=== PATIENT | male | born 1965 | race Caucasian/White ===

== ENCOUNTER 2018-12-23 13:13 | Emergency (ER) | payer OTHER ==
[~2018-12-23] VITALS: Ht 172.7 cm; Wt 73.0 kg
[2018-12-23 13:16] VITALS: BP 121/70; PULSE 72; RESP 18; Ht 172.7 cm; Wt 73.0 kg
[2018-12-23] MEDS ORDERED: TRAM50TA2 PO (13:33)
[2018-12-23] MEDS ORDERED: IBUP-1542 PO (13:33)
--- NOTE | 2018-12-23 13:39 | ERD ---
ER Documentation Chief Complaint Chief Complaint RT FOOT PAIN X FEW MONTHS HPI 53-year-old male presents with right foot pain for last few months. He had an x-ray which was normal 1 month ago. He is prescribed antibiotics for uncertain reason without relief. Denies any history of trauma. He does walk a lot. Den ies any deficits, restricted range of motion, additional symptoms. Patient gives a history of seizures due to history of head injuries. No recent seizures. ROS All systems reviewed and are negative except as per history of present illness. Medications Home Meds Active Scripts Tramadol HCl (Tramadol HCl) 50 Mg Tablet, 50 MG PO Q4 PRN for PAIN, #15 TAB Prov:JESSICA GARCIA MD 12/23/18 Ibuprofen* (Motrin*) 600 Mg Tab, 600 MG PO Q6, #30 TAB Prov:JESSICA GARCIA MD 12/23/18 PMhx/Soc Hx Neurological Disorder: Yes (Seizures) Smoking Status: Unknown if ever smoked FmHx Family History: No diabetes, No coronary disease, No other Physical Exam Vitals Vital Signs Date Temp Pulse Resp B/P (MAP) Pulse Ox O2 O2 Flow FiO2 Time Delivery Rate 12/23/18 97.3 72 18 121/70 97 13:16 (87) Physical Exam Const: No acute distress Head: Atraumatic Eyes: Normal Conjunctiva ENT: Normal External Ears, Nose and Mouth. Neck: Full range of motion. No meningismus. Resp: Clear to auscultation bilaterally Cardio: Regular rate and rhythm, no murmurs Abd: Soft, non tender, non distended. Normal bowel sounds Skin: No petechiae or rashes Back: No midline or flank tenderness Ext: No cyanosis, or edema. Tenderness across the metatarsals. Minimal possible swelling without erythema, warmth, deformities, deficits. Right lower extremity is neurovascular intact. Neur: Awake and alert Psych: Normal Mood and Affect Results 24 hrs Current Medications Medications Dose Sig/Rafiq Start Time Status Last (Trade) Ordered Route PRN Stop Time Admin Dose Reason Admin Ibuprofen 600 mg ONCE ONCE 12/23/18 (Motrin) PO 14:00 12/23/18 14:01 Procedures/MDM Patient declined an x-ray as he just had a normal and report 1 month ago. Angel gregory presents with nontraumatic right foot pain for the last 3 months consistent with likely tendinitis or sprain. He has no signs of septic arthritis, ischemia, deficits, infection, additional concerning signs or symptoms. He was placed in right lower extremity postop shoe and Yoni bandage will be prescribed ibuprofen with recommendations for primary care possibly with podiatry follow-up and return precautions for fevers, redness, worsening pain, new worsening symptoms. The patient was stable with no new complaints during the ER course. Clinically, there is no current evidence to suggest meningitis, sepsis, acute abdomen, pneumonia, stroke, acute coronary syndrome, pulmonary embolism, aortic dissection or any other emergent condition appearing to require further evaluation or hospitalization. Patient counseled regarding my diagnostic impression and care plan. Prior to discharge all questions answered. Pt agrees with treatment plan and understands strict return precautions. Pt is instructed to follow up with primary care provider within 24-48 hours. Precautionary instructions provided including instructions to return to the ER if not improving or for any worsening or changing symptoms or concerns. Disclaimer: Inadvertent spelling and grammatical errors are likely due to EHR/dictation software use and do not reflect on the overall quality of patient care. Also, please note that the electronic time recorded on this note does not necessarily reflect the actual time of the patient encounter. Departure Diagnosis: Primary Impression: Foot pain Laterality: right Qualified Codes: M79.671 - Pain in right foot Condition: Stable Patient Instructions: Sprain Foot, Tendonitis Referrals: [facility] YOU HAVE RECEIVED A MEDICAL SCREENING EXAM AND THE RESULTS INDICATE THAT YOU DO NOT HAVE A CONDITION THAT REQUIRES URGENT TREATMENT IN THE EMERGENCY DEPARTMENT. FURTHER EVALUATION AND TREATMENT OF YOUR CONDITION CAN WAIT UNTIL YOU ARE SEEN IN YOUR DOCTORS OFFICE WITHIN THE NEXT 1-2 DAYS. IT IS YOUR RESPONSIBILITY TO MAKE AN APPOINTMENT FOR FOLOW-UP CARE. IF YOU HAVE A PRIMARY DOCTOR --you should call your primary doctor and schedule an appointment IF YOU DO NOT HAVE A PRIMARY DOCTOR YOU CAN CALL OUR PHYSICIAN REFERRAL HOTLINE AT IF YOU CAN NOT AFFORD TO SEE A PHYSICIAN YOU CAN CHOSE FROM THE FOLLOWING [facility] [address] [facility] [address] [facility] [facility] [address] [facility] [facility] [address] [facility] [address] [facility]. [facility] [address] Additional Instructions: Likely tendinitis or sprain. See primary doctor and care attendant for further evaluation treatment. Recheck otherwise for new or worsening symptoms-redness, fevers, new worsening symptoms. JESSICA GARCIA MD Dec 23, 2018 13:39
[2018-12-23] MEDS ORDERED: IBUPROFEN 600 MG TAB PO ONE (14:00)
== END 2018-12-23 14:20 | disposition home or self-care (01) ==
LOC: FTE 13:13
DX: M79.671 Pain in right foot (principal)
CPT/HCPCS: Z7502; Z7610; 99283